=== PATIENT | female | born 1975 | race Caucasian/White ===

== ENCOUNTER → 2016-11-26 | Outpatient (CLI) | payer OTHER ==
--- NOTE | ~2016-11-26 | US6 ---
[facility] A Service of [facility] [place] RADIOLOGY TEXT RESULTS PATIENT: LEDA MARTÍNEZ LOCATION: [facility] : 71 UNIT #: [id number] AGE: [address]: Alta Cartagena SEX: F ORDER DR: [id number] [address] [id number] [id number] O MR#: [id number] Acc #: [id number] NAME: LEDA MARTÍNEZ : 1975 SEX: F STUDY DATE/TIME: 11/26/2016 10:58 UNIT: SG ROOM: STUDY DESCRIPTION: US Abdominal Limited Attending Physician: Alta Cartagena A.P.R.N. Referring Physician: Alta Cartagena A.P.R.N. Ordering Physician: Alta Cartagena A.P.R.N. Primary Care Physician: Alta Cartagena A.P.R.N. MEDICAL IMAGING REPORT This report is preliminary unless electronic signature is present. EXAM Right upper quadrant ultrasound INDICATIONS Right upper quadrant pain for 6 months. TECHNIQUE Galvan-scale and color Doppler sonographic images were obtained through the right upper quadrant. FINDINGS Pancreas appears unremarkable. Liver is homogeneous in echotexture. It does measure up to about 18.2 cm in length. No intra- or extrahepatic biliary dilatation is seen. Main portal vein is patent with hepatopetal flow. Right kidney is normal appearance with no solid or cystic renal mass identified. No hydronephrosis seen. Fre[employer]er questions some possible sludge within the gallbladder. This is not convincingly demonstrated on the submitted images. No stones are seen and there is no gallbladder wall thickening or pericholecystic fluid. IMPRESSION 1. Hepatomegaly of uncertain clinical significance. Patient's liver is homogeneous in echotexture and no focal hepatic lesions are seen. Correlation with liver function test is suggested. 2. Fre[employer]er questions some possible sludge within the gallbladder. I do not think this is convincingly demonstrated on the submitted images and certainly, no stones are seen. There is no gallbladder wall thickening. Dictated by... Zenaida Benavides M.D. [facility]. [facility] A Service of [facility] & [facility] [place] RADIOLOGY TEXT RESULTS PATIENT: LEDA MARTÍNEZ LOCATION: [facility] : [birth year] UNIT #: [id number] AGE: [address]: Alta Cartagena SEX: F ORDER DR: THIS IS AN ELECTRONICALLY VERIFIED REPORT Zenaida Benavides M.D. at 11/29/2016 5:04 PM AFF/pcl TD: 11/26/2016 22:58 JOB #: [id number] MEDICAL IMAGING REPORT Page 1 of 1
== END | disposition home or self-care (01) ==
LOC: SGUS 10:50
DX: R10.11 Right upper quadrant pain (principal); R16.0 Hepatomegaly, not elsewhere classified
CPT/HCPCS: 76705